=== PATIENT | male | born 1975 | race Caucasian/White ===

== ENCOUNTER 2024-09-12 18:08 | Emergency (ER) | payer SELFPAY ==
[~2024-09-12] VITALS: Ht 167.6 cm; Wt 109.1 kg
[2024-09-12] MEDS ORDERED: Glucagon 1 MG VIAL IM ONE (18:15)
[2024-09-12 18:41] VITALS: BP 152/94
== END 2024-09-12 18:44 | disposition short-term general hospital (02) ==
LOC: ED 18:08
DX: K56.609 Unspecified intestinal obstruction, unspecified as to partial versus complete obstruction (principal)
CPT/HCPCS: J1610